=== PATIENT | male | born 1995 | race Caucasian/White ===

== ENCOUNTER 2017-02-02 15:56 | Emergency (ER) | payer MEDICAID ==
[~2017-02-02] VITALS: Ht 182.9 cm; Wt 97.5 kg
[2017-02-02 16:00] VITALS: BP 130/77; PULSE 85; RESP 16; TEMP 98.3; O2SAT 96
--- NOTE | 2017-02-02 16:00 | NUR ---
Patient to ER bed 8 to gown for evaluation. Side rails up. Report given to Jayden MADDEN.
--- NOTE | 2017-02-02 16:10 | NUR ---
Mel [employer]NA[employer] at bedside for eval.
[2017-02-02] MEDS ORDERED: BACITRACIN 1 GM OINT TP ONE (16:15)
[2017-02-02] MEDS ORDERED: DIPH-TET-PERTUS Vaccine 0.5 ML VIAL (ADACEL) I.M. ONE (16:15)
[2017-02-02] MEDS ORDERED: IBUPROFEN 800 MG TABLET PO ONE (16:15)
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
--- NOTE | 2017-02-02 16:36 | NUR ---
Patient given written and verbal discharge instructions and verbalizes understanding. ER MD discussed with patient the results and treatment provided. Given copies of tests performed in ER. Patient in stable condition. ID arm band removed. Rx of Bacitracin, Keflex, Motrin, Bactrim DS given. Patient educated on pain management and to follow up with PMD. Pain Scale 6/10, pt recently medicated, states he feels ok for DC. Opportunity for questions provided and answered.
== END 2017-02-02 16:38 | disposition home or self-care (01) ==
LOC: SED 15:56
DX: T23.212A Burn of second degree of left thumb (nail), initial encounter (principal); F17.210 Nicotine dependence, cigarettes, uncomplicated; R03.0 Elevated blood-pressure reading, without diagnosis of hypertension; Z71.6 Tobacco abuse counseling; X10.1XXA Contact with hot food, initial encounter; Y93.89 Activity, other specified; Y99.0 Civilian activity done for income or pay; Y92.89 Other specified places as the place of occurrence of the external cause
CPT/HCPCS: 90715; 99283

== ENCOUNTER 2017-02-04 16:07 | Emergency (ER) | payer MEDICAID ==
[~2017-02-04] VITALS: Ht 182.9 cm; Wt 97.5 kg
[2017-02-04 16:14] VITALS: BP 140/79; PULSE 99; RESP 16; TEMP 97.6; O2SAT 96
--- NOTE | 2017-02-04 16:16 | NUR ---
Patient triaged and placed in waiting room. VSS and patient appears in no acute distress at this time. Accompanied by SELF, awaiting available bed, and MD notified of need for MSE.
--- NOTE | 2017-02-04 19:49 | NUR ---
Patient to ER H for evaluation. Side rails up. Report given to Shaylee MADDEN.
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
--- NOTE | 2017-02-04 20:06 | NUR ---
ER MD Hernández at bedside for evaluation
[2017-02-04 20:25] VITALS: BP 124/73; PULSE 85; RESP 16; TEMP 97.9; O2SAT 97
--- NOTE | 2017-02-04 20:25 | NUR ---
Patient given written and verbal discharge instructions and verbalizes understanding. ER MD Hernández discussed with patient the results and treatment provided. Patient in stable condition. ID arm band removed. Patient educated on pain management and to follow up with PMD. Pain Scale 0/10. Opportunity for questions provided and answered.
== END 2017-02-04 20:25 | disposition home or self-care (01) ==
LOC: SED 16:07
DX: T23.212D Burn of second degree of left thumb (nail), subsequent encounter (principal)
CPT/HCPCS: 99283

== ENCOUNTER 2017-11-09 21:51 | Emergency (ER) | payer SELFPAY ==
[~2017-11-09] VITALS: Ht 180.3 cm; Wt 99.8 kg
[2017-11-09 21:54] VITALS: BP_SYST 132
--- NOTE | 2017-11-09 22:30 | NUR ---
Patient to ER bed 8 to gown for evaluation. Side rails up. Report given to MARYANNE BETH.
--- NOTE | 2017-11-09 22:32 | NUR ---
ER MD Cavazos at bedside for medical evaluation.
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
[2017-11-09] MEDS ORDERED: KETOROLAC TROMETHAMINE 60 MG/2 ML VIAL IM ONE (22:45)
--- NOTE | 2017-11-09 23:10 | NUR ---
No adverse reactions noted after medication administration. Will continue to monitor.
[2017-11-09 23:12] VITALS: BP_SYST 132
--- NOTE | 2017-11-09 23:12 | NUR ---
Patient given written and verbal discharge instructions and verbalizes understanding. ER MD discussed with patient the results and treatment provided. Patient in stable condition. ID arm band removed. Rx of Motrin and Afrin nasal spray given. Patient educated on pain management and to follow up with PMD. Pain Scale 2/10 tolerable to patient. Opportunity for questions provided and answered.
== END 2017-11-09 23:12 | disposition home or self-care (01) ==
LOC: SED 21:51
DX: S02.2XXA Fracture of nasal bones, initial encounter for closed fracture (principal); F10.10 Alcohol abuse, uncomplicated; Y04.0XXA Assault by unarmed brawl or fight, initial encounter; Y93.89 Activity, other specified; Y92.89 Other specified places as the place of occurrence of the external cause; Y99.8 Other external cause status
CPT/HCPCS: 70160; 96372; 99284; J1885